=== PATIENT | female | born 1950 | race African-American/Black ===

== ENCOUNTER 2018-07-12 10:23 | Inpatient (IN) | payer MEDICARE ==
[~2018-07-12] VITALS: Ht 162.6 cm; Wt 68.0 kg
[2018-07-12] VITALS (42 sets, daily range): BP systolic 105–140; BP diastolic 58–87
[2018-07-12] MEDS ORDERED: MORPHINE SULFATE 4 MG/ML CPJ (NOT FOR IM USE) IV PRN (11:00)
[2018-07-12] MEDS ORDERED: DEXT 5%/LACTATED RINGERS 1,000 ML IV SCH ×2 (11:00→11:19)
[2018-07-12] MEDS ORDERED: NICARDIPINE 100 MG in SODIUM CHLORIDE 0.9% 60 ML IV PRN ×2 (11:15→21:00)
[2018-07-12] MEDS ORDERED: LEVETIRACETAM 500MG PREMIX 100 ML IV NR (11:15)
[2018-07-12 11:53] LABS: BASOPHILS % 0.6 % (0.0-2.0); EOSINOPHILS % 0.3 % (0.0-5.0); HEMATOCRIT. 40.9 % (36.0-48.0); HEMOGLOBIN. 13.4 g/dL (12.0-16.0); LYMPHOCYTES % 27.7 % (20.0-50.0); MEAN CORPUSCULAR HEMOGLOBIN 28.9 pg (28.0-32.0); MEAN CORPUSCULAR VOLUME 88.5 fL (81.0-99.0); MEAN PLATELET VOLUME 6.8 fl (7.4-10.4); NEUTROPHILS % 66.4 % (40.0-76.0); PLATELET 283 x1000/uL (130-400); RED BLOOD CELL COUNT 4.62 mill/uL (4.2-5.4); RED CELL DISTRIBUTION WIDTH 15.1 % (11.6-14.6)
[2018-07-12 11:54] LABS: CHLORIDE 103 mEq/L (98-107)
[2018-07-12 11:58] LABS: ETHANOL BLOOD < 10 mg/dL
[2018-07-12] MEDS ORDERED: DEXAMETHASONE 4MG/ML 1ML VIAL IV NR (12:00)
[2018-07-12 12:03] LABS: LDL CHOLESTEROL 90 mg/dL (5-100)
[2018-07-12 12:24] LABS: PROTHROMBIN TIME 9.9 sec (9.1-11.1)
[2018-07-12] MEDS ORDERED: DEXTROSE 50% WATER 50ML SYRINGE IV PRN (14:45)
[2018-07-12] MEDS: DEXT 5%/LACTATED RINGERS 1,000 ML IV SCH (16:00)
[2018-07-12] MEDS: BLOOD SUGAR DIAGNOSTIC STRIP TEST SCH ×3 (16:30→21:36)
[2018-07-12] MEDS ORDERED: IPRATROPIUM/ALBUTEROL 0.5-3(2.5)MG/3ML NEB HHN PRN (16:30)
[2018-07-12] MEDS ORDERED: DIATR MEGLU/DIATRIZOATE SOLN 30ML PO NR (16:30)
[2018-07-12] MEDS ORDERED: LEVETIRACETAM 500MG PREMIX 100 ML IV SCH (17:00)
[2018-07-12] MEDS: DEXAMETHASONE 4MG/ML 1ML VIAL IV SCH (18:23)
[2018-07-12] MEDS: INSULIN LISPRO 100 UNITS/ML SUBCUT SCH ×2 (18:23→21:00)
[2018-07-12 18:41] LABS: CARCINO EMBRYONIC ANTIGEN 0.7 ng/ml
[2018-07-12 18:53] LABS: HEPATITIS B SURFACE ANTIGEN NEGATIVE
[2018-07-12 19:22] LABS: HEPATITIS A AB IGM NEGATIVE (NEGATIVE)
[2018-07-12] MEDS: ATORVASTATIN CALCIUM 40MG TABLET PO SCH (21:00)
[2018-07-12] MEDS: LEVETIRACETAM 500MG in SODIUM CHLORIDE 0.9% 100ML IV SCH (21:36)
[2018-07-13] VITALS (56 sets, daily range): BP systolic 101–150; BP diastolic 57–96
[2018-07-13] MEDS: DEXAMETHASONE 4MG/ML 1ML VIAL IV SCH ×3 (00:44→11:25)
[2018-07-13 05:25] LABS: BASOPHILS % 0.1 % (0.0-2.0); HEMOGLOBIN. 13.5 g/dL (12.0-16.0); LYMPHOCYTES % 19.4 % (20.0-50.0); MEAN CORPUSCULAR HEMOGLOBIN 29.1 pg (28.0-32.0); MEAN CORPUSCULAR VOLUME 88.5 fL (81.0-99.0); MONOCYTES % 0.9 % (2.0-8.0); NEUTROPHILS % 79.6 % (40.0-76.0); PLATELET 288 x1000/uL (130-400); RED BLOOD CELL COUNT 4.63 mill/uL (4.2-5.4); RED CELL DISTRIBUTION WIDTH 15.3 % (11.6-14.6)
[2018-07-13 06:26] LABS: CHLORIDE 104 mEq/L (98-107)
[2018-07-13] MEDS: BLOOD SUGAR DIAGNOSTIC STRIP TEST SCH ×3 (06:42→21:13)
[2018-07-13] MEDS: INSULIN LISPRO 100 UNITS/ML SUBCUT SCH ×4 (06:42→21:00)
[2018-07-13] MEDS: DEXT 5%/LACTATED RINGERS 1,000 ML IV SCH (09:00)
[2018-07-13] MEDS: LEVETIRACETAM 500MG in SODIUM CHLORIDE 0.9% 100ML IV SCH ×2 (10:00→21:13)
[2018-07-13] MEDS ORDERED: BISACODYL 5MG TABLET PO PRN (10:30)
[2018-07-13] MEDS ORDERED: DOCUSATE SODIUM 250MG CAPSULE PO NR (10:30)
[2018-07-13] MEDS ORDERED: ACETAMINOPHEN 325MG TABLET PO PRN (15:45)
[2018-07-13] MEDS: ATORVASTATIN CALCIUM 40MG TABLET PO SCH (21:13)
[2018-07-14] VITALS (19 sets, daily range): BP systolic 104–141; BP diastolic 53–77
[2018-07-14] MEDS: BLOOD SUGAR DIAGNOSTIC STRIP TEST SCH ×3 (06:36→16:50)
[2018-07-14] MEDS: INSULIN LISPRO 100 UNITS/ML SUBCUT SCH ×3 (06:37→16:55)
[2018-07-14] MEDS: LEVETIRACETAM 500MG in SODIUM CHLORIDE 0.9% 100ML IV SCH (08:46)
[2018-07-14] MEDS ORDERED: DOCUSATE SODIUM 250MG CAPSULE PO SCH (09:00)
[2018-07-14 13:11] LABS: HIV SCREEN 4G Non Reactive (Non Reactive)
[2018-07-15 07:17] LABS: IMMUNOGLOBULIN A 271 mg/dL (87-352); IMMUNOGLOBULIN G 1271 mg/dL (700-1600); IMMUNOGLOBULIN M 87 mg/dL (26-217)
== END 2018-07-14 19:00 | disposition home health service (06) | DRG 65 ==
LOC: EDBD 10:23 → ER 10:23 → EDBEDREQSVC 10:47 → ENRESERV 11:41 → MICUSO 12:06 → EDBEDREQTM 12:08 → EDBEDREQ 12:08
PROVIDERS: ADMIT Internal Medicine; ATTEND Internal Medicine
DX: I61.1 Nontraumatic intracerebral hemorrhage in hemisphere, cortical (principal); E44.1 Mild protein-calorie malnutrition; C79.31 Secondary malignant neoplasm of brain; I10 Essential (primary) hypertension; E11.9 Type 2 diabetes mellitus without complications; J43.9 Emphysema, unspecified; F17.200 Nicotine dependence, unspecified, uncomplicated; K59.00 Constipation, unspecified; N85.2 Hypertrophy of uterus; Z80.9 Family history of malignant neoplasm, unspecified; Z91.14 Patient's other noncompliance with medication regimen; Z68.25 Body mass index [BMI] 25.0-25.9, adult; Z92.21 Personal history of antineoplastic chemotherapy; Z92.3 Personal history of irradiation
CPT/HCPCS: 36415; 70460; 70551; 71045; 71250; 74176; 80048; 80061; 82105; 82378; 82784; 82962; 83036; 83721; 84443; 84484; 86300; 86301; 86304; 86334; 86705; 86709; 86803; 87340; 87389; 93005; 93970; 96374; 96375; 97162; 97166; 99285; G0482; J1100; J1815; J1953; J2270; J3490; J7050; J7121